=== PATIENT | female | born 1935 | race Caucasian/White ===

== ENCOUNTER → 2016-12-31 | Outpatient (CLI) | payer MEDICARE ==
[~2016-12-31] MED LIST: MULT-890 PO; OMG1KC PO; ONDAN4ODT PO
[2016-12-31 13:38] VITALS: BP 142/83
--- NOTE | 2016-12-31 13:38 | Urgent Care T Sheet Gen (E) ---
Intake General Temperature (Fahrenheit): 98.7 Pulse: 95 Blood Pressure Systolic: 142 Blood Pressure Diastolic: 83 Respirations: 18 SPO2: 97 Description of Symptoms Patient presents complaining of a plugged up R ear. patient wears hearing aids and stopped by her supplier the other day, thinking something was wrong with her hearing aid. The specialist said her TM was blocked by some wax and suggested she have it removed. She used OTC wax drops last night and didn't notice any improvement which is why she came today. History of Present Illness Allergies: Coded Allergies: Penicillins (Verified Allergy, Severe, 10/12/15) Home Meds Active Scripts Ondansetron HCl (Zofran ODT)4 Mg Tab.rapdis4 Mg PO Q4H PRN NAUSEA/VOMITING #10 TAB Prov:JOCELYN SANCHEZ MD 10/13/15 Reported Medications Multivitamin/Iron/Folic Acid (Daily Multiple Tablet)1 Each Tablet1 Each PO DAILY 10/12/15 [place] 3 Polyunsat Fatty Acids (Fish Oil)1,000 Mg Cap1,000 Mg PO DAILY 10/12/15 Respiratory Constitutional Symptoms: No syptoms reported EENTM: Ear pain (lack of hearing in R ear) All Other Systems Reviewed Remaining Systems: All other systems reviewed with negative findings Past Jnftboc-Rcfjep-Qcepwi Hx Patient's Social History Recent foreign travel: No Surgeries/Hospitalizations Hospitalization/Surgery Hx: GALLBLADDER, APPENDECTOMY, HYSTERECTOMY Respiratory Respiratory History: None Cardiovascular Cardiovascular History: Other, see comment Comment: HEART STOPPED DURING SURGERY 06/01/2010 Reproductive System Sexually Transmitted Diseases: No Gastrointestinal GI/Endocrine History: None Diabetes Diabetes: No HEENT Impaired Vision: Glasses Hearing Impaired: None Psychosocial Behavior Disorders: None Physical Exam Physical Exam General Appearance: WD/WN No apparent distress Eyes, Ears, Nose, Throat Ex: TMs normal (L external ear canal is clear and TM is normal) Other (examination of the R ear revealed cerumen impaction. TM was not initially visualized however once cerumen was removed, the TM was normal without any redness, bulging or infection.) Procedures/Interventions Ear Procedure : Location: Right ear Foreign Body Removed: Impacted Cerumen Instrument used for removal: Irrigation Progress/Procedure Conclusion The R TM was blocked due to cerumen impaction. Irrigation was used and the cerumen was flushed out fairly easily. TM was visualized and was normal. No signs of infection or other causes to her lack of hearing. Departure Urgent Care Impression Impression: Primary Impression: Cerumen impaction Qualified Code: H61.21 - Impacted cerumen, right ear Departure Disposition: 01 HOME OR SELF-CARE Condition: Stable Referrals: Tyson Villa MD (PCP) Additional Instructions: Once the R cerumen impaction was removed, the patient placed her hearing aid back into the ear. She states she couldn't hear anything however I noticed an improvement in her conversation. She heard and answered questions much easier than before I removed the impaction. Since she states she still cannot hear, I instructed her to f/u with her parole hearing officer as there might be a problem with the hearing aid. Again , her TM was free from infection. Patient understands DC instructions. All questions were answered. End of report . RADHA SHAW Dec 31, 2016 13:38
== END ==
LOC: MHUC 13:06
PROVIDERS: ATTEND Physician Assistant
DX: H61.21 Impacted cerumen, right ear (principal)
CPT/HCPCS: 99213